=== PATIENT | female | born 1970 | race Two or more races ===

== ENCOUNTER 2020-09-09 14:41 | Emergency (ER) | payer OTHER ==
[~2020-09-09] VITALS: Ht 162.6 cm; Wt 131.5 kg
[2020-09-09 14:41] VITALS: BP 135/88
[2020-09-09] MEDS ORDERED: METF-442 PO (14:55)
[2020-09-09] MEDS ORDERED: GLIM2TAB31 PO (14:55)
[2020-09-09] MEDS ORDERED: CLIN300C12 PO (15:17)
--- NOTE | 2020-09-09 15:26 | NUR ---
Patient discharged to home in stable condition. Written and verbal after care instructions given. Patient verbalizes understanding of instruction.
== END 2020-09-09 15:26 | disposition home or self-care (01) ==
LOC: ER 14:49
DX: L08.9 Local infection of the skin and subcutaneous tissue, unspecified (principal); E11.9 Type 2 diabetes mellitus without complications; Z79.84 Long term (current) use of oral hypoglycemic drugs

== ENCOUNTER 2021-05-27 18:27 | Emergency (ER) | payer OTHER ==
[~2021-05-27] VITALS: Ht 152.4 cm; Wt 86.2 kg
[~2021-05-27 18:27] MED LIST: CLIN300C12 PO; GLIM2TAB31 PO; METF-442 PO
--- NOTE | 2021-05-27 18:30 | NUR ---
BIBS DAUGHTER C/O BODY ACHES, CHILLS, AND BACK PAIN SINCE LAST NIGHT, PT IS AFEBRILE UPON ARRIVAL. PROVIDED WITH WARM BLANKET FOR COMFORT. AWAITING MD MCBRIDE.
[2021-05-27] MEDS ORDERED: KETOROLAC TROMETHAMINE 15 MG/ML VIAL ONE (19:28)
[2021-05-27] MEDS ORDERED: KETOROLAC TROMETHAMINE INJ 30 MG/ML VIAL IV ONE (19:30)
[2021-05-27] MEDS ORDERED: IV NS 0.9% 1,000 ML IV ONE (19:30)
--- NOTE | 2021-05-27 19:36 | NUR ---
COVID SWAB DONE AND SENT TO LAB
--- NOTE | 2021-05-27 19:36 | NUR ---
BLOOD COLLECTED AND SENT TO LAB
--- NOTE | 2021-05-27 19:36 | NUR ---
RAPID INFLUENZA DONE AND SENT TO LAB
--- NOTE | 2021-05-27 19:55 | NUR ---
EMT @ BEDSIDE FOR EKG
[2021-05-27 20:10] LABS: CALCIUM, SERUM 8.2 mg/dL (8.5-10.1); CREATININE 0.6 mg/dL (0.6-1.3); POTASSIUM 3.7 mmol/L (3.5-5.1)
[2021-05-27 20:15] LABS: BASOPHILS % (AUTO) 0.4 % (0.0-2.0); EOSINOPHILS % (AUTO) 1.7 % (0.0-6.0); HEMATOCRIT 36 % (33-45); LYMPHOCYTES # (AUTO) 1.1 K/uL (0.8-4.8); LYMPHOCYTES % (AUTO) 14.4 % (20.0-44.0); MEAN CORPUSCULAR HGB CONC 33 g/dl (31.0-36.0); MEAN CORPUSCULAR VOLUME 85 fL (82-100); MONOCYTES # (AUTO) 0.5 K/uL (0.1-1.30); MONOCYTES % (AUTO) 6.6 % (2.0-12.0); NEUTROPHILS # (AUTO) 5.9 K/uL (1.8-8.9); NEUTROPHILS % (AUTO) 76.9 % (43.0-81.0); PLATELET COUNT (AUTO) 226 K/uL (150-450); RED BLOOD CELL COUNT(AUTO) 4.23 MIL/uL (4.0-5.2); WHITE BLOOD COUNT (AUTO) 7.6 K/uL (4.3-11.0)
[2021-05-27 20:17] LABS: ALBUMIN 3.5 g/dL (3.4-5.0); BILIRUBIN,TOTAL 0.3 mg/dL (0.2-1.0); MAGNESIUM 1.7 mg/dL (1.8-2.4)
[2021-05-27 20:21] LABS: THYROID STIMULATING HORMONE 1.851 uIU/mL (0.358-3.74)
[2021-05-27 21:15] VITALS: BP 129/60
--- NOTE | 2021-05-27 21:23 | NUR ---
Patient discharged to home in stable condition. Written and verbal after care instructions given. Patient verbalizes understanding of instruction.
== END 2021-05-27 21:23 | disposition home or self-care (01) ==
LOC: ER 18:30
DX: B34.9 Viral infection, unspecified (principal); Z20.822 Contact with and (suspected) exposure to COVID-19; E11.9 Type 2 diabetes mellitus without complications; Z79.84 Long term (current) use of oral hypoglycemic drugs
CPT/HCPCS: 36415; 80053; 82550; 83735; 84439; 84443; 84484; 85025; 87426; 87804; 93005; 96361; 96374; 99284; C9803; J1885; J7030